=== PATIENT | female | born 1970 | race Caucasian/White ===

== ENCOUNTER 2020-06-03 07:29 | Outpatient (CLI) | payer OTHER, SELFPAY ==
--- NOTE | ~2020-06-03 | MM_ITS ---
EXAMINATION: MM screening rachel BI w william HISTORY: Screening mammogram TECHNIQUE: Craniocaudal and mediolateral oblique 3-D tomosynthesis images were obtained and synthetic 2-D images were generated. CAD analysis was submitted and interpreted. COMPARISON: 12/14/2018, 03/01/2011 bilateral digital screening mammogram examinations BREAST PARENCHYMAL COMPOSITION: There are scattered areas of fibroglandular density. FINDINGS: Stable benign fibroglandular asymmetry. There is no evidence of suspicious mass, calcificat ion, or architectural distortion to suggest malignancy in either breast. There has been no suspicious interval change. IMPRESSION: 1. No mammographic evidence of malignancy. 2. Recommend routine screening mammography in one year. BI-RADS Category 2: Benign finding(s). Reviewed, dictated and finalized at location A.
== END 2020-06-03 07:30 | disposition home or self-care (01) ==
LOC: ANHIMG 07:32
PROVIDERS: PCP Family Medicine; Visit Provider Family Medicine
DX: Z12.31 Encounter for screening mammogram for malignant neoplasm of breast (principal)
CPT/HCPCS: 77063; 77067

== ENCOUNTER → 2021-09-13 09:45 | Outpatient (CLI) | payer OTHER, SELFPAY ==
[2021-09-13 18:23] LABS: SARS-CoV-2 RNA PCR Negative
== END ==
PROVIDERS: PCP Family Medicine; Visit Provider Family Medicine
DX: R43.0 Anosmia (principal); Z20.822 Contact with and (suspected) exposure to COVID-19
CPT/HCPCS: C9803; U0003; U0005

== ENCOUNTER 2021-10-08 01:19 | Emergency (ER) | payer OTHER, SELFPAY ==
--- NOTE | ~2021-10-08 | CT_ITS ---
EXAMINATION: CT abdomen pelvis wo con DATE: 10/08/2021 02:06 INDICATION: Left flank pain. TECHNIQUE: Computed tomography (CT) of the abdomen and pelvis was performed without intravenous contr ast. The dose-length product was 1521.37 mGy-cm. Automated exposure control and iterative reconstruct ion technique were employed. COMPARISON: None. FINDINGS: Lung bases are unremarkable. Heart size normal. No significant pleural or pericardial effus ion. There is a 4 mm distal left ureteral stone just proximal to the UVJ with mild hydronephrosis. Th ere is a subtle hyperdense lesion of the right kidney, possibly a hyperdense cyst. There is an adjace nt 4.5 cm simple cyst. Fatty infiltration of the liver. The spleen, pancreas, adrenal glands are unremarkable. Gallbladder i s present. Nonobstructive bowel gas pattern. Normal appendix. No abnormal pelvic masses or fluid aris ections. There is mild compression deformity of T12, likely chronic. Mild thoracic spondylosis. IMPRESSION: 1. Distal left ureteral stone measuring 4 mm with mild hydronephrosis. 2: Hyperdense lesion of the right kidney, most likely hyperdense cyst, although further evaluation w ith ultrasound is recommended. Reviewed, dictated and finalized at location B. [employer] IMPRESSION: 1. Distal left ureteral stone measuring 4 mm with mild hydronephrosis. 2: Hyperdense lesion of the right kidney, most likely hyperdense cyst, althoug h further evaluation with ultrasound is recommended.
[2021-10-08 01:23] VITALS: BP 155/91; PULSE 102; RESP 18; TEMP 37.1; O2SAT 100
[2021-10-08 01:56] LABS: Basophils Absolute Auto 0.1 K/mm3 (0.0-0.1); Basophils Percent Auto 0.7 % (0.2-1.2); Eosinophils Absolute Auto 0.2 K/mm3 (0-0.3); Eosinophils Percent Auto 2.8 % (0-4.4); Hemoglobin 11.2 g/dL (12.0-15.0); Immature Granulocyte Absolute 0.02 K/mm3 (0.00-0.031); Immature Granulocyte Percent A 0.3 % (0-0.5); Lymphocytes Percent Auto 29.6 % (18.3-44.2); Mean Corpuscular HGB Conc 30.3 g/dl (32-36); Mean Corpuscular Hemoglobin 24.5 pg (26-34); Mean Platelet Volume 10.1 fl (7.4-10.4); Monocytes Absolute Auto 0.5 K/mm3 (0.1-0.6); Monocytes Percent Auto 7.7 % (2.6-8.5); Neutrophils Percent Auto 58.9 % (45.5-73.1); Platelet Count Result 279 k/mm3 (150-375); Red Blood Count 4.57 M/mm3 (4.2-5.4); White Blood Count 6.8 K/mm3 (4.5-10.0)
[2021-10-08 02:05] LABS: Alanine Aminotransferase 55 U/L (4-35); Albumin Level 4.3 g/dL (3.5-5.1); Alkaline Phosphatase 117 U/L (38-126); Anion Gap 8 mmol/L (8-16); Aspartate Amino Transferase 56 U/L (14-36); Bilirubin,Total 0.3 mg/dL (0.2-1.3); Blood Urea Nitrogen 22 mg/dL (7-17); Calcium 9.3 mg/dL (8.4-10.2); Carbon Dioxide 24 mmol/L (22-30); Chloride 110 mmol/L (98-107); Estimated CRCL calculation 62 ml/min; Estimated Glomerular Filt Rate 52; Glucose 161 mg/dL (65-110); Potassium 4.3 mmol/L (3.4-5.0); Sodium 142 mmol/L (137-145)
[2021-10-08 02:14] LABS: Add Urine Microscopic? YES; Appearance Urine Clear (Clear); Bacteria Urine Trace /hpf; Bilirubin Urine 1+ (Negative); Blood Urine 3+ (Negative); Calcium Oxalate Crystals Urine Present /hpf; Color Urine Amber (Yellow); Glucose Urine UA Negative (Negative); Ketones Urine Trace mg/dL (Negative); Leukocyte Esterase Ur Trace LEU/UL (Negative); Mucus Urine Heavy /lpf; Nitrate Urine Negative (Negative); Protein Urine 2+ mg/dL (Negative); RBC Urine >75 /hpf (0-2); Squamous Epithelial Cell Urine Occasional /hpf (Few)
[2021-10-08 02:15] LABS: Specific Grav Ur 1.039 (1.001-1.035)
--- NOTE | 2021-10-08 02:35 | ED.FEMALEGU ---
HPI - Female Genitourinary General Chief complaint: Urogenital-Female Stated complaint: UTI w/ L flank pain Time Seen by Provider: 10/08/21 01:34 Source: patient and RN notes reviewed History of Present Illness HPI Narrative: 51-year-old female presents in the emergency department for evaluation of left flank pain and concern for urinary tract infection. Over the past 6 weeks patient has been on 3 rounds of Macrobid and recently started Keflex on Friday. Patient describes left flank pain and does report some suprapubic pain as well. Patient states that tonight she did have onset of nausea. Patient denies any recent fevers. Patient denies any prior history of kidney stones. Does have diabetes hypertension and high cholesterol. Related Data Home Medications Medication Instructions Recorded Confirmed aspirin 325 mg tablet 325 mg PO DAILY 08/02/20 07/23/21 cholecalciferol (vitamin D3) 25 25 mcg PO DAILY 03/28/21 07/23/21 mcg (1,000 unit) capsule krill [id number] 45 mg-45 cap PO 03/28/21 07/23/21 mg capsule omeprazole 20 mg tablet,delayed 20 mg PO DAILY 03/28/21 07/23/21 release Allergies Allergy/AdvReac Type Severity Reaction Status Date / Time Penicillins Allergy Unknown Unknown Verified 10/08/21 01:37 Sulfa (Sulfonamide Allergy Unknown Unknown Verified 10/08/21 01:37 Antibiotics) Review of Systems Review of Systems: CONSTITUTIONAL: Denies fever, chills, or sweats. EYES: Denies visual changes, redness, or discharge. ENT: Denies rhinorrhea, congestion, sore throat, or otalgia. CARDIOVASCULAR: Denies chest pain, palpitations, or edema. RESPIRATORY: Denies cough or dyspnea. GASTROINTESTINAL: flank pain GENITOURINARY: flank pain SKIN: Denies rash or itching. MUSCULOSKELETAL: Denies back pain, joint pain, or myalgia. NEUROLOGIC: Denies headache, numbness, or weakness. PSYCHIATRIC: Denies anxiety or depression. All systems reviewed & are unremarkable except as noted in HPI and below PMFSH Past Medical History Medical History COVID-19 Morbid obesity with BMI of 40.0-44.9, adult Surgical History Surgical History History of fasciotomy Family History Family History Mother Family history of thyroid disease Grandparent Diabetes mellitus Family history of cardiovascular disease Father Hypertension Family history of elevated blood lipids Other Cerebrovascular accident Family history of malignant neoplasm of breast Family history of polycystic kidney disease Social History Social History (Updated 07/23/21 @ 13:40 by Janelle Zacarias [facility]) Smoking status: Former smoker Smoking end date: 08/18/04 Alcohol intake: current Exam Narrative: APPEARANCE: Well appearing, no pain, no distress, well-nourished. HEAD: normocephalic, atraumatic. EYES: PERRLA/EOMI, conjunctivae clear. NECK: Supple. No adenopathy, no masses. RESPIRATORY: Airway patent, respirations nonlabored. Clear to auscultation bilaterally, no rales, rhonchi, wheezing. CARDIOVASCULAR: Regular rate and rhythm without murmurs rubs or gallops. ABDOMINAL: left CV tenderness to palp. MUSCULOSKELETAL: Moves all extremities. Strength/ROM intact, No edema, No calf tenderness. NEURO: Alert. Cranial nerves II through XII intact. Good coordination SKIN: Warm, dry. Normal Color PSYCHIATRIC: Normal affect/mood. Course Course Emergency Course: Patient was updated on the results of her imaging and labs. Patient does feel comfortable with the plan for discharge to home. Patient was provided medications for pain control for home. All questions concerns were addressed. Patient was in no distress at time of discharge from the emergency department. Vital Signs Vital signs: Vital Signs Temperature 98.7 F 10/08/21 01:23 Pulse Rate 102 H 10/08/21 01:23 Respiratory Rate 1
[2021-10-08 02:39] VITALS: BP 133/57; PULSE 71; RESP 16; O2SAT 100
[2021-10-08] MEDS: SODIUM CHLORIDE 0.9% IV 1,000 ML 999 ML IV CONT (02:40)
[2021-10-08] MEDS: PHENAZOPYRIDINE HCL 100 MG TABLET PO (02:41)
[2021-10-08] MEDS: TAMSULOSIN HCL 0.4 MG CAPSULE PO (02:41)
[2021-10-08] MEDS: ONDANSETRON INJ 4 MG/2 ML VIAL IV PUSH (02:41)
[2021-10-08] MEDS: traMADol HCL (*CRX) 50 MG TABLET PO (03:21)
[2021-10-08 03:59] VITALS: BP 132/73; PULSE 71; RESP 16; O2SAT 100
== END 2021-10-08 04:03 | disposition home or self-care (01) ==
PROVIDERS: Emergency Provider Emergency Medicine; PCP Family Medicine
DX: N13.2 Hydronephrosis with renal and ureteral calculous obstruction (principal); E11.9 Type 2 diabetes mellitus without complications; I10 Essential (primary) hypertension; E78.00 Pure hypercholesterolemia, unspecified; Z86.16 Personal history of COVID-19; E66.01 Morbid (severe) obesity due to excess calories; Z68.41 Body mass index [BMI] 40.0-44.9, adult; Z87.891 Personal history of nicotine dependence; Z79.84 Long term (current) use of oral hypoglycemic drugs; Z79.82 Long term (current) use of aspirin
CPT/HCPCS: 36415; 74176; 80053; 81001; 85025; 87086; 96361; 96365; 96367; 96375; 99284; A9270; J0131; J0696; J2405; J7030

== ENCOUNTER 2022-08-28 08:30 | Outpatient (CLI) | payer OTHER, SELFPAY ==
--- NOTE | ~2022-08-28 | MM_ITS ---
EXAMINATION: MM screening rachel BI w william HISTORY: Screening mammogram TECHNIQUE: Craniocaudal and mediolateral oblique 3-D tomosynthesis images were obtained and synthetic 2-D images were generated. CAD analysis was submitted and interpreted. COMPARISON: 06/03/2020, 12/15/2019 bilateral screening mammogram examinations BREAST PARENCHYMAL COMPOSITION: There are scattered areas of fibroglandular density. FINDINGS: Stable mild fibroglandular asymmetry. Occasional bilateral benign calcifications. There is no evidence of suspicious mass, calcification, or architectural distortion to suggest malignancy in e ither breast. There has been no suspicious interval change. IMPRESSION: 1. No mammographic evidence of malignancy. 2. Recommend routine screening mammography in one year. BI-RADS Category 2: Benign finding(s). Reviewed, dictated and finalized at location A. D[employer]PER
== END 2022-08-28 08:31 | disposition home or self-care (01) ==
LOC: ANHIMG 08:31
PROVIDERS: PCP Family Medicine; Visit Provider Physician Assistant
DX: Z12.31 Encounter for screening mammogram for malignant neoplasm of breast (principal)
CPT/HCPCS: 77063; 77067